=== PATIENT | female | born 1995 | race Caucasian/White ===

== ENCOUNTER 2021-03-02 09:40 | Emergency (ER) | payer MEDICAID, OTHER ==
[~2021-03-02] VITALS: Ht 152.4 cm; Wt 50.8 kg
[2021-03-02 23:33] VITALS: BP 140/94
[2021-03-03 00:38] LABS: CREATININE 0.7 mg/dL (0.5-1.5); POTASSIUM 3.9 mmol/L (3.5-5.1)
[2021-03-03] MEDS ORDERED: MORPHINE 4 MG SYG IV ONE (01:00)
[2021-03-03] MEDS ORDERED: ONDANSETRON 4MG INJ IVP ONE (01:00)
[2021-03-03 01:55] LABS: BASOPHILS % (AUTO) 0.5 % (0.0-5.0); EOSINOPHILS % (AUTO) 0.4 % (0.0-8.0); HEMATOCRIT 35.3 % (36-48); LYMPHOCYTES % (AUTO) 12.7 % (21.0-51.0); MEAN CORPUSCULAR HGB CONC 34.6 g/dL (32.0-36.0); MEAN CORPUSCULAR VOLUME 86.9 fL (79-99); MONOCYTES % (AUTO) 5.8 % (3.0-13.0); NEUTROPHILS % (AUTO) 80.4 % (40.0-77.0); PLATELET COUNT (AUTO) 234 K/uL (130-400); RED BLOOD CELL COUNT(AUTO) 4.06 MIL/uL (4.00-5.50); RED CELL DISTRIBUTION WIDTH 11.6 % (11.0-15.5); WHITE BLOOD COUNT (AUTO) 8.2 K/uL (4.8-10.8)
[2021-03-03] MEDS ORDERED: LACTATED RINGERS 1000ML 1,000 ML IV ONE (07:22)
== END 2021-03-03 08:00 | disposition short-term general hospital (02) ==
LOC: EDH 23:31
DX: T25.221A Burn of second degree of right foot, initial encounter (principal); T25.291A Burn of second degree of multiple sites of right ankle and foot, initial encounter; Z20.822 Contact with and (suspected) exposure to COVID-19; T31.0 Burns involving less than 10% of body surface; X10.2XXA Contact with fats and cooking oils, initial encounter; Y93.89 Activity, other specified; Y92.89 Other specified places as the place of occurrence of the external cause; Y99.8 Other external cause status; Z79.899 Other long term (current) drug therapy
CPT/HCPCS: 36415; 80048; 85025; 87635; 96374; 96375; 99285; C9803; J2270; J2405; J7120

== ENCOUNTER 2021-10-27 15:43 | Inpatient (IN) | payer OTHER ==
[~2021-10-27] VITALS: Ht 152.4 cm; Wt 45.4 kg
[2021-10-27 16:03] LABS: BASOPHILS % (AUTO) 0.1 % (0.0-5.0); EOSINOPHILS % (AUTO) 0.1 % (0.0-8.0); HEMATOCRIT 40.8 % (36-48); LYMPHOCYTES % (AUTO) 4.4 % (21.0-51.0); MEAN CORPUSCULAR HEMOGLOBIN 29.6 pg (27.0-33.0); MEAN CORPUSCULAR VOLUME 82.1 fL (79-99); MONOCYTES % (AUTO) 7.2 % (3.0-13.0); NEUTROPHILS % (AUTO) 87.7 % (40.0-77.0); PLATELET COUNT (AUTO) 302 K/uL (130-400); RED BLOOD CELL COUNT(AUTO) 4.97 MIL/uL (4.00-5.50); RED CELL DISTRIBUTION WIDTH 11.9 % (11.0-15.5); WHITE BLOOD COUNT (AUTO) 18.4 K/uL (4.8-10.8)
[2021-10-27 16:12] LABS: CREATININE 1.5 mg/dL (0.5-1.5); POTASSIUM 3.4 mmol/L (3.5-5.1)
[2021-10-27 16:16] LABS: ALBUMIN 5.4 g/dL (3.5-5.0); BILIRUBIN,TOTAL 0.7 mg/dL (0.2-1.0)
[2021-10-27] MEDS ORDERED: ONDANSETRON 4MG INJ IVP ONE ×2 (16:30→17:00)
[2021-10-27] MEDS ORDERED: 0.9%NACL 1000ML 1,000 ML IV ONE ×2 (16:30→17:30)
[2021-10-27] MEDS ORDERED: MORPHINE 4 MG SYG IVP ONE ×2 (17:00→20:00)
[2021-10-27 17:31] LABS: APPEARANCE,URINE SL CLOUDY (CLEAR); BILIRUBIN,URINE MODERATE (NEGATIVE); COLOR,URINE DARK YELLOW (YELLOW); GLUCOSE, URINE (UA) NEGATIVE (NEGATIVE); KETONES,URINE 40 mg/dL (NEGATIVE); LEUKOCYTE ESTERASE ,URINE NEGATIVE (NEGATIVE); NITRATE,URINE NEGATIVE (NEGATIVE); OCCULT BLOOD,URINE TRACE-INTACT (NEGATIVE); PH,URINE 5.5 (5.0-8.0); PROTEIN,URINE 100 mg/dL (NEGATIVE)
[2021-10-27 17:35] LABS: HCG,QUAL RESULT NEGATIVE (NEGATIVE)
[2021-10-27] MEDS ORDERED: ZOSYN 3.375GM +NS 50ML IV STA (17:37)
[2021-10-27 17:44] LABS: BACTERIA,URINE Few /HPF (None Seen); MUCUS,URINE Few LPF (None Seen); RBC,URINE 0-1 /HPF (0-1); WBC,URINE 0-1 /HPF (0-1)
[2021-10-27 17:45] LABS: SQUAMOUS EPITHELIAL CELL,UR 0-2 /HPF (0-2)
[2021-10-27 18:01] LABS: AMPHET/METH SCREEN,URINE NEGATIVE (NEGATIVE); BARBITURATE SCREEN, URINE NEGATIVE (NEGATIVE); BENZODIAZEPINES SCREEN,URINE NEGATIVE (NEGATIVE); CANNABINOID SCREEN,URINE POSITIVE (NEGATIVE); COCAINE SCREEN,URINE NEGATIVE (NEGATIVE); OPIATE SCREEN,URINE NEGATIVE (NEGATIVE); PHENCYCLIDINE SCREEN,URINE NEGATIVE (NEGATIVE)
[2021-10-27] MEDS ORDERED: IOHEXOL-350 75 ML VIAL IV ONE (18:04)
[2021-10-27] MEDS ORDERED: KETOROLAC 30MG VIAL (30MG/ML) ONE (19:20)
[2021-10-27] MEDS ORDERED: KETOROLAC 30MG VIAL (30MG/ML) IVP ONE (19:30)
[2021-10-27] MEDS ORDERED: MORPHINE 4 MG SYG ONE (19:58)
[2021-10-27] MEDS ORDERED: CEFTRIAXONE 1G VIAL IVP ONE (20:00)
[2021-10-27] MEDS ORDERED: METRONIDAZOLE 500MG/100ML BAG 100 ML IVPB ONE (20:00)
[2021-10-27] MEDS ORDERED: DOXYCYCLINE HYCLATE 100 MG TABLET PO SCH (20:00)
[2021-10-27] MEDS ORDERED: ACET-3194 PO (20:46)
[2021-10-27 23:00] VITALS: BP 121/61
[2021-10-27] MEDS: DEXTROSE 5 %-0.45 % NACL 1,000 ML IV SCH (23:00)
[2021-10-27 23:05] VITALS: BP 121/61
[2021-10-27] MEDS: PROMETHAZINE HCL 25 MG/ML 1ML AMPULE IM PRN (23:51)
[2021-10-27] MEDS: MEPERIDINE-PF 50 MG/ML SYG IM PRN (23:52)
[2021-10-27] MEDS: CEFAZOLIN SODIUM 1 GM VIAL IVP SCH (23:53)
[2021-10-28] MEDS: DOXYCYCLINE 100MG+NS 250ML IV SCH ×3 (00:40→22:34)
[2021-10-28 03:41] VITALS: BP 112/70
[2021-10-28 07:40] VITALS: BP 112/81
[2021-10-28] MEDS: CEFAZOLIN SODIUM 1 GM VIAL IVP SCH ×2 (08:58→17:13)
[2021-10-28] MEDS: MEPERIDINE-PF 50 MG/ML SYG IM PRN (08:59)
[2021-10-28] MEDS: PROMETHAZINE HCL 25 MG/ML 1ML AMPULE IM PRN ×3 (08:59→21:52)
[2021-10-28 11:06] VITALS: BP 133/77
[2021-10-28] MEDS ORDERED: MEPERIDINE-PF 25 MG/ML SYG IM SCH (11:30)
[2021-10-28] MEDS ORDERED: MEPERIDINE-PF 75 MG/ML SYG ONE (15:33)
[2021-10-28 16:06] VITALS: BP 138/82
[2021-10-28 16:43] LABS: HEMATOCRIT 35.5 % (36-48); MEAN CORPUSCULAR HEMOGLOBIN 29.3 pg (27.0-33.0); MEAN CORPUSCULAR HGB CONC 34.4 g/dL (32.0-36.0); MEAN CORPUSCULAR VOLUME 85.1 fL (79-99); RED BLOOD CELL COUNT(AUTO) 4.17 MIL/uL (4.00-5.50); WHITE BLOOD COUNT (AUTO) 11.2 K/uL (4.8-10.8)
[2021-10-28] MEDS: DEXTROSE 5 %-0.45 % NACL 1,000 ML IV SCH (17:13)
[2021-10-28 20:13] VITALS: BP 134/80
[2021-10-28] MEDS: MEPERIDINE-PF 75 MG/ML SYG IM PRN (21:52)
[2021-10-29] VITALS (24 sets, daily range): BP systolic 112–155; BP diastolic 65–99
[2021-10-29] MEDS: CEFAZOLIN SODIUM 1 GM VIAL IVP SCH ×3 (01:35→16:12)
[2021-10-29] MEDS: MEPERIDINE-PF 75 MG/ML SYG IM PRN (04:06)
[2021-10-29] MEDS: PROMETHAZINE HCL 25 MG/ML 1ML AMPULE IM PRN (04:06)
[2021-10-29 07:27] LABS: HEMATOCRIT 35.5 % (36-48); MEAN CORPUSCULAR HEMOGLOBIN 29.7 pg (27.0-33.0); MEAN CORPUSCULAR HGB CONC 35.5 g/dL (32.0-36.0); MEAN CORPUSCULAR VOLUME 83.7 fL (79-99); RED BLOOD CELL COUNT(AUTO) 4.24 MIL/uL (4.00-5.50); WHITE BLOOD COUNT (AUTO) 8.8 K/uL (4.8-10.8)
[2021-10-29] MEDS ORDERED: FENTANYL CITRATE PF 50 MCG/1 ML 2ML VIAL ONE ×3 (08:51→10:38)
[2021-10-29] MEDS ORDERED: PROPOFOL 10 MG/ML 20ML VIAL IV ONE (08:51)
[2021-10-29] MEDS ORDERED: MIDAZOLAM HCL 1 MG/ML 2ML VIAL ONE (08:53)
[2021-10-29] MEDS: DOXYCYCLINE 100MG+NS 250ML IV SCH (11:17)
[2021-10-29] MEDS ORDERED: MEPERIDINE-PF 25 MG/ML SYG ONE (11:28)
[2021-10-29] MEDS: DEXTROSE 5 %-0.45 % NACL 1,000 ML IV SCH (15:00)
[2021-10-29] MEDS ORDERED: ACET-2079 PO (16:49)
[2021-10-29] MEDS ORDERED: IBUP-2088 PO (16:51)
[2021-10-29] MEDS ORDERED: CEPH500B PO (16:52)
== END 2021-10-29 18:35 | disposition home or self-care (01) | DRG 743 ==
LOC: EDH 15:43 → EDHIP 15:44 → WSH 23:05
PROVIDERS: ADMIT Obstetrics & Gynecology; ATTEND Obstetrics & Gynecology
PROC: 0U904ZZ Drainage of Right Ovary, Percutaneous Endoscopic Approach (ICD-10-PCS; principal; 2021-10-29 10:06)
DX: N83.201 Unspecified ovarian cyst, right side (principal); Z87.891 Personal history of nicotine dependence
CPT/HCPCS: 36415; 74177; 76856; 80053; 80305; 81001; 81025; 83690; 85025; 85027; 86850; 86900; 86901; 87486; 87635; 87797; A4351; G0378; J0690; J0696; J1885; J2175; J2250; J2270; J2405; J2543; J2550; J2704; J3010; J3490; J7030; J7120; Q9967

== ENCOUNTER 2021-10-29 23:25 | Emergency (ER) | payer OTHER ==
[~2021-10-29] VITALS: Ht 152.4 cm; Wt 45.4 kg
[~2021-10-29 23:25] MED LIST: ACET-2079 PO; ACET-3194 PO; CEPH500B PO; IBUP-2088 PO
[2021-10-30] MEDS ORDERED: LORAZEPAM 2 MG/ML 1 ML VIAL IVP ONE
[2021-10-30 02:27] VITALS: BP 145/78
== END 2021-10-30 02:35 | disposition home or self-care (01) ==
LOC: EDH 23:25
DX: G89.18 Other acute postprocedural pain (principal); R10.30 Lower abdominal pain, unspecified; Z79.1 Long term (current) use of non-steroidal anti-inflammatories (NSAID)
CPT/HCPCS: 96374; 99283; J2060

== ENCOUNTER 2021-11-05 09:16 | Emergency (ER) | payer OTHER ==
[~2021-11-05] VITALS: Ht 152.4 cm; Wt 45.4 kg
[2021-11-05 09:45] LABS: BASOPHILS % (AUTO) 0.1 % (0.0-5.0); HEMATOCRIT 37.7 % (36-48); LYMPHOCYTES % (AUTO) 13.5 % (21.0-51.0); MEAN CORPUSCULAR HEMOGLOBIN 29.4 pg (27.0-33.0); MEAN CORPUSCULAR HGB CONC 34.7 g/dL (32.0-36.0); MEAN CORPUSCULAR VOLUME 84.7 fL (79-99); MONOCYTES % (AUTO) 11.5 % (3.0-13.0); PLATELET COUNT (AUTO) 271 K/uL (130-400); RED BLOOD CELL COUNT(AUTO) 4.45 MIL/uL (4.00-5.50); RED CELL DISTRIBUTION WIDTH 12.1 % (11.0-15.5)
[2021-11-05 09:48] LABS: APPEARANCE,URINE SL CLOUDY (CLEAR); BILIRUBIN,URINE NEGATIVE (NEGATIVE); COLOR,URINE YELLOW (YELLOW); GLUCOSE, URINE (UA) 100 mg/dL (NEGATIVE); KETONES,URINE NEGATIVE (NEGATIVE); LEUKOCYTE ESTERASE ,URINE TRACE (NEGATIVE); NITRATE,URINE POSITIVE (NEGATIVE); OCCULT BLOOD,URINE SMALL (NEGATIVE); PH,URINE 6.5 (5.0-8.0); PROTEIN,URINE NEGATIVE (NEGATIVE); UROBILINOGEN,URINE 0.2 mg/dL (0.2-1.0)
[2021-11-05 09:50] LABS: HCG,QUAL RESULT NEGATIVE (NEGATIVE)
[2021-11-05 09:56] LABS: CREATININE 0.7 mg/dL (0.5-1.5); POTASSIUM 3.6 mmol/L (3.5-5.1)
[2021-11-05 10:00] LABS: BILIRUBIN,TOTAL 0.5 mg/dL (0.2-1.0); TOTAL PROTEIN, SERUM 6.8 g/dL (6.0-8.3)
[2021-11-05 10:05] LABS: RBC,URINE None Seen /HPF (0-1)
[2021-11-05 10:06] LABS: BACTERIA,URINE Many /HPF (None Seen)
[2021-11-05 10:14] LABS: AMPHET/METH SCREEN,URINE NEGATIVE (NEGATIVE); BARBITURATE SCREEN, URINE NEGATIVE (NEGATIVE); BENZODIAZEPINES SCREEN,URINE NEGATIVE (NEGATIVE); CANNABINOID SCREEN,URINE POSITIVE (NEGATIVE); COCAINE SCREEN,URINE NEGATIVE (NEGATIVE); OPIATE SCREEN,URINE POSITIVE (NEGATIVE); PHENCYCLIDINE SCREEN,URINE NEGATIVE (NEGATIVE)
[2021-11-05] MEDS ORDERED: MAGNESIUM CITRATE 296 ML SOLUTION PO ONE (11:00)
[2021-11-05] MEDS ORDERED: IOHEXOL 350 MG/ML 100ML INFUS..BTL IV ONE (12:10)
[2021-11-05] MEDS ORDERED: MAGNESIUM CITRATE 296 ML SOLUTION ONE (13:06)
[2021-11-05 13:56] VITALS: BP 130/82
== END 2021-11-05 15:23 | disposition home or self-care (01) ==
LOC: EDH 09:16
DX: K59.00 Constipation, unspecified (principal); Z98.890 Other specified postprocedural states; Z79.899 Other long term (current) drug therapy
CPT/HCPCS: 36415; 74177; 80053; 80305; 81001; 81025; 85025; 87077; 87088; 87186; 99285; Q9967

== ENCOUNTER 2021-12-01 15:47 | Inpatient (IN) | payer OTHER ==
[~2021-12-01] VITALS: Ht 152.4 cm; Wt 45.4 kg
[2021-12-01] MEDS ORDERED: ONDANSETRON 4MG INJ ONE (15:52)
[2021-12-01] MEDS ORDERED: PANTOPRAZOLE 40 MG/VIAL ONE (15:52)
[2021-12-01] MEDS ORDERED: MORPHINE 4 MG SYG ONE (15:53)
[2021-12-01] MEDS ORDERED: FAMOTIDINE 20MG VIAL IV ONE (16:00)
[2021-12-01] MEDS ORDERED: MORPHINE 4 MG SYG IVP ONE (16:00)
[2021-12-01] MEDS ORDERED: 0.9% NACL 500ML IV.SOLN 500 ML IV ONE (16:00)
[2021-12-01] MEDS ORDERED: ONDANSETRON 4MG INJ IVP ONE (16:00)
[2021-12-01 16:31] LABS: APPEARANCE,URINE CLEAR (CLEAR); BILIRUBIN,URINE NEGATIVE (NEGATIVE); COLOR,URINE YELLOW (YELLOW); GLUCOSE, URINE (UA) NEGATIVE (NEGATIVE); KETONES,URINE >=80 mg/dL (NEGATIVE); LEUKOCYTE ESTERASE ,URINE NEGATIVE (NEGATIVE); NITRATE,URINE NEGATIVE (NEGATIVE); OCCULT BLOOD,URINE TRACE-LYSED (NEGATIVE); PROTEIN,URINE NEGATIVE (NEGATIVE); UROBILINOGEN,URINE 0.2 mg/dL (0.2-1.0)
[2021-12-01 16:39] LABS: HCG,QUALITATIVE URINE NEGATIVE (NEGATIVE)
[2021-12-01 16:43] LABS: BASOPHILS % (AUTO) 0.4 % (0.0-5.0); HEMATOCRIT 35.9 % (36-48); LYMPHOCYTES % (AUTO) 7.2 % (21.0-51.0); MEAN CORPUSCULAR HEMOGLOBIN 30.5 pg (27.0-33.0); MEAN CORPUSCULAR HGB CONC 34.5 g/dL (32.0-36.0); MEAN CORPUSCULAR VOLUME 88.4 fL (79-99); MONOCYTES % (AUTO) 4.2 % (3.0-13.0); NEUTROPHILS % (AUTO) 87.8 % (40.0-77.0); PLATELET COUNT (AUTO) 250 K/uL (130-400); RED BLOOD CELL COUNT(AUTO) 4.06 MIL/uL (4.00-5.50); RED CELL DISTRIBUTION WIDTH 12.4 % (11.0-15.5); WHITE BLOOD COUNT (AUTO) 7.5 K/uL (4.8-10.8)
[2021-12-01 16:43] LABS: BACTERIA,URINE Rare /HPF (None Seen); MUCUS,URINE Few LPF (None Seen); SQUAMOUS EPITHELIAL CELL,UR Few /HPF (0-2); WBC,URINE 0-1 /HPF (0-1)
[2021-12-01 16:46] LABS: AMPHET/METH SCREEN,URINE NEGATIVE (NEGATIVE); BARBITURATE SCREEN, URINE NEGATIVE (NEGATIVE); BENZODIAZEPINES SCREEN,URINE NEGATIVE (NEGATIVE); CANNABINOID SCREEN,URINE POSITIVE (NEGATIVE); COCAINE SCREEN,URINE NEGATIVE (NEGATIVE); PHENCYCLIDINE SCREEN,URINE NEGATIVE (NEGATIVE)
[2021-12-01] MEDS ORDERED: IOHEXOL 350 MG/ML 100ML INFUS..BTL IV ONE (16:50)
[2021-12-01 16:57] LABS: CARBON DIOXIDE 23 mmol/L (21-32); CHLORIDE 112 mmol/L (101-111); CREATININE 0.6 mg/dL (0.5-1.5); GLOMERULAR FILTR. RATE CALC 127 mL/min (>60); GLUCOSE,RANDOM 77 mg/dL (70-105); POTASSIUM 3.5 mmol/L (3.5-5.1); SODIUM SERUM 147 mmol/L (136-145); UREA NITROGEN, BLOOD 9 mg/dL (7-18)
[2021-12-01 17:01] LABS: ALANINE AMINOTRANSFERASE 19 U/L (12-78); ALBUMIN 4.4 g/dL (3.5-5.0); ASPARTATE AMINOTRANSFERASE 14 U/L (10-37); TOTAL PROTEIN, SERUM 6.9 g/dL (6.0-8.3)
[2021-12-01 17:03] LABS: LIPASE < 50 U/L (114-286)
[2021-12-01] MEDS ORDERED: KETOROLAC 15MG/ML VIAL (15MG/ML) IV ONE (18:30)
[2021-12-01] MEDS ORDERED: IBUP-14 PO (19:25)
[2021-12-01] MEDS ORDERED: TRAM50TA2 PO (19:25)
[2021-12-01] MEDS ORDERED: ONDA4TAB10 PO (19:25)
[2021-12-01] MEDS ORDERED: MORPHINE 4 MG SYG IVP PRN (21:30)
[2021-12-01 23:00] VITALS: BP 128/96
[2021-12-01] MEDS: IBUPROFEN 600 MG TABLET PO SCH (23:00)
[2021-12-01] MEDS ORDERED: MORPHINE 2 MG SYG IVP PRN (23:30)
[2021-12-01] MEDS: DEXTROSE 5%-LACTATED RINGERS 1,000 ML IV SCH (23:33)
[2021-12-01] MEDS: ONDANSETRON 4MG INJ IVP PRN (23:34)
[2021-12-02] MEDS: HYDROMORPHONE 1 MG INJ IVP PRN ×2 (02:54→23:48)
[2021-12-02 04:02] VITALS: BP 100/74
[2021-12-02] MEDS: MORPHINE 2 MG SYG IVP PRN ×3 (06:04→13:26)
[2021-12-02] MEDS: ONDANSETRON 4MG INJ IVP PRN (06:04)
[2021-12-02] MEDS: DEXTROSE 5%-LACTATED RINGERS 1,000 ML IV SCH ×3 (06:05→22:37)
[2021-12-02] MEDS: IBUPROFEN 600 MG TABLET PO SCH ×4 (06:05→23:23)
[2021-12-02 06:38] LABS: BASOPHILS % (AUTO) 0.1 % (0.0-5.0); HEMATOCRIT 34.5 % (36-48); LYMPHOCYTES % (AUTO) 10.6 % (21.0-51.0); MEAN CORPUSCULAR HEMOGLOBIN 29.8 pg (27.0-33.0); MEAN CORPUSCULAR HGB CONC 33.6 g/dL (32.0-36.0); MEAN CORPUSCULAR VOLUME 88.7 fL (79-99); MONOCYTES % (AUTO) 8.6 % (3.0-13.0); NEUTROPHILS % (AUTO) 80.2 % (40.0-77.0); PLATELET COUNT (AUTO) 275 K/uL (130-400); RED BLOOD CELL COUNT(AUTO) 3.89 MIL/uL (4.00-5.50); RED CELL DISTRIBUTION WIDTH 12.4 % (11.0-15.5); WHITE BLOOD COUNT (AUTO) 9.5 K/uL (4.8-10.8)
[2021-12-02 06:55] LABS: ALBUMIN 3.7 g/dL (3.5-5.0); CREATININE 0.8 mg/dL (0.5-1.5); TOTAL PROTEIN, SERUM 6.3 g/dL (6.0-8.3)
[2021-12-02 07:28] VITALS: BP 108/66
[2021-12-02 11:35] VITALS: BP 100/60
[2021-12-02] MEDS ORDERED: CEFTRIAXONE 1G VIAL IM SCH (13:00)
[2021-12-02] MEDS: DOXYCYCLINE 100MG+NS 250ML IV SCH (13:28)
[2021-12-02 15:45] VITALS: BP 101/63
[2021-12-02 19:30] VITALS: BP 107/67
[2021-12-02 23:12] VITALS: BP 110/81
[2021-12-03] MEDS: DOXYCYCLINE 100MG+NS 250ML IV SCH (01:30)
[2021-12-03 03:22] VITALS: BP 120/88
[2021-12-03] MEDS: IBUPROFEN 600 MG TABLET PO SCH ×2 (05:00→08:18)
[2021-12-03 07:35] VITALS: BP 115/69
[2021-12-03] MEDS: DEXTROSE 5%-LACTATED RINGERS 1,000 ML IV SCH ×2 (07:35→07:39)
[2021-12-03] MEDS ORDERED: CEPH250C2 PO (09:10)
[2021-12-03] MEDS ORDERED: IBUP-2697 PO (09:12)
[2021-12-04 14:11] LABS: OPIATES SCREEN URINE Positive ng/mL (Cutoff=300)
== END 2021-12-03 09:40 | disposition home or self-care (01) | DRG 761 ==
LOC: EDH 15:47 → EDHIP 15:48 → WSH 22:35
PROVIDERS: ADMIT Obstetrics & Gynecology; ATTEND Obstetrics & Gynecology
DX: N83.291 Other ovarian cyst, right side (principal); Z90.710 Acquired absence of both cervix and uterus; Z98.891 History of uterine scar from previous surgery
CPT/HCPCS: 36415; 74177; 76856; 80053; 80305; 81001; 81025; 83690; 85025; 86850; 86900; 86901; 87486; 87797; C9113; G0378; J0696; J1170; J1885; J2270; J2405; J3490; Q9967

== ENCOUNTER 2021-12-31 15:06 | Emergency (ER) | payer OTHER ==
[~2021-12-31] VITALS: Ht 160 cm; Wt 49.9 kg
[~2021-12-31 15:06] MED LIST changes: -ACET-2079 PO; -ACET-3194 PO; +CEPH250C2 PO; -CEPH500B PO; -IBUP-2088 PO; +IBUP-2697 PO
[2021-12-31] MEDS ORDERED: 0.9% NACL 500ML IV.SOLN 500 ML IV ONE (15:30)
[2021-12-31] MEDS ORDERED: KETOROLAC 15MG/ML VIAL (15MG/ML) IV ONE (15:30)
[2021-12-31] MEDS ORDERED: DiphenhydrAMINE HCL 50 MG/ML VIAL IV ONE (15:30)
[2021-12-31] MEDS ORDERED: PROCHLORPERAZINE 10MG/2ML INJ IV ONE (15:30)
[2021-12-31 16:00] LABS: BASOPHILS % (AUTO) 0.2 % (0.0-5.0); EOSINOPHILS % (AUTO) 0.1 % (0.0-8.0); HEMATOCRIT 39.2 % (36-48); MEAN CORPUSCULAR HEMOGLOBIN 29.9 pg (27.0-33.0); MEAN CORPUSCULAR HGB CONC 33.9 g/dL (32.0-36.0); MEAN CORPUSCULAR VOLUME 88.1 fL (79-99); MONOCYTES % (AUTO) 5.4 % (3.0-13.0); NEUTROPHILS % (AUTO) 82.9 % (40.0-77.0); PLATELET COUNT (AUTO) 257 K/uL (130-400); RED BLOOD CELL COUNT(AUTO) 4.45 MIL/uL (4.00-5.50); RED CELL DISTRIBUTION WIDTH 11.6 % (11.0-15.5); WHITE BLOOD COUNT (AUTO) 9.3 K/uL (4.8-10.8)
[2021-12-31 16:22] LABS: CREATININE 0.6 mg/dL (0.5-1.5); POTASSIUM 4.3 mmol/L (3.5-5.1)
[2021-12-31 16:27] LABS: ALBUMIN 4.4 g/dL (3.5-5.0); TOTAL PROTEIN, SERUM 7.4 g/dL (6.0-8.3)
[2021-12-31] MEDS ORDERED: FIORIT PO (17:12)
[2021-12-31 17:56] VITALS: BP 127/79
== END 2021-12-31 17:56 | disposition home or self-care (01) ==
LOC: EDH 15:06
DX: G43.909 Migraine, unspecified, not intractable, without status migrainosus (principal); R11.2 Nausea with vomiting, unspecified; Z79.1 Long term (current) use of non-steroidal anti-inflammatories (NSAID)
CPT/HCPCS: 99284; 96374; 70450; 96375; 96361; 80053; 84703; 85025; 36415; J7040; J1200; J0780; J1885

== ENCOUNTER 2023-04-20 20:01 | Emergency (ER) | payer MEDICAID, OTHER ==
[~2023-04-20] VITALS: Ht 152.4 cm; Wt 54.4 kg
[~2023-04-20 20:01] MED LIST changes: +FIORIT PO
[2023-04-20] MEDS ORDERED: TETANUS/DIPHTHERIA TOXOID [ADULT] 0.5 ML VIAL IM ONE (20:30)
[2023-04-20] MEDS ORDERED: CEPH500B PO (20:44)
[2023-04-20] MEDS ORDERED: IBUP-1493 PO (20:44)
== END 2023-04-20 22:25 | disposition home or self-care (01) ==
LOC: EDH 20:01
DX: S01.01XA Laceration without foreign body of scalp, initial encounter (principal); F17.200 Nicotine dependence, unspecified, uncomplicated; Z79.1 Long term (current) use of non-steroidal anti-inflammatories (NSAID); W10.8XXA Fall (on) (from) other stairs and steps, initial encounter; Y93.89 Activity, other specified; Y92.89 Other specified places as the place of occurrence of the external cause; Y99.8 Other external cause status
CPT/HCPCS: 12013; 70450; 81025; 90471; 90714

== ENCOUNTER 2023-06-21 13:13 | Emergency (ER) | payer BC, MEDICAID ==
[~2023-06-21] VITALS: Ht 154.9 cm; Wt 50.8 kg
[~2023-06-21 13:13] MED LIST changes: +CEPH500B PO; +IBUP-1493 PO
[2023-06-21 13:44] LABS: APPEARANCE,URINE CLEAR (CLEAR); BILIRUBIN,URINE NEGATIVE (NEGATIVE); COLOR,URINE LIGHT-YELLOW (YELLOW); GLUCOSE, URINE (UA) 300 mg/dL (NEGATIVE); KETONES,URINE 150 mg/dL (NEGATIVE); LEUKOCYTE ESTERASE ,URINE NEGATIVE Leu/uL (NEGATIVE); NITRATE,URINE NEGATIVE (NEGATIVE); OCCULT BLOOD,URINE NEGATIVE (NEGATIVE); PH,URINE 6.5 (5.0-8.0); PROTEIN,URINE 20 mg/dL (NEGATIVE); UROBILINOGEN,URINE 0.2 mg/dL (0.2-1.0)
[2023-06-21 13:53] LABS: ADD UA MICROSCOPIC YES
[2023-06-21] MEDS: HYDROMORPHONE 0.5 MG SYG (0.5MG/0.5ML) IVP ONE (13:53)
[2023-06-21] MEDS: ONDANSETRON 4MG INJ IVP ONE (13:53)
[2023-06-21 13:55] LABS: BACTERIA,URINE FEW /HPF (None Seen); MUCUS,URINE RARE LPF (None Seen); SQUAMOUS EPITHELIAL CELL,UR MOD /HPF (0-2)
[2023-06-21 14:06] LABS: AMPHET/METH SCREEN,URINE NEGATIVE (NEGATIVE); BARBITURATE SCREEN, URINE NEGATIVE (NEGATIVE); BENZODIAZEPINES SCREEN,URINE NEGATIVE (NEGATIVE); CANNABINOID SCREEN,URINE POSITIVE (NEGATIVE); COCAINE SCREEN,URINE NEGATIVE (NEGATIVE); OPIATE SCREEN,URINE NEGATIVE (NEGATIVE); PHENCYCLIDINE SCREEN,URINE NEGATIVE (NEGATIVE)
[2023-06-21 14:14] LABS: BASOPHILS # (AUTO) 0.01 K/uL (0.00-0.20); BASOPHILS % (AUTO) 0.1 % (0.0-5.0); HEMATOCRIT 37.2 % (36-48); IMMATURE GRANULOCYTE ABSOLUTE 0.02 K/uL (0-1); LYMPHOCYTES # (AUTO) 0.2 K/uL (1.0-4.8); LYMPHOCYTES % (AUTO) 2.6 % (21.0-51.0); MEAN CORPUSCULAR HEMOGLOBIN 29.6 pg (27.0-33.0); MEAN CORPUSCULAR HGB CONC 33.9 g/dL (32.0-36.0); MEAN CORPUSCULAR VOLUME 87.5 fL (79-99); MONOCYTES # (AUTO) 0.2 K/uL (0.1-1.0); NEUTROPHILS # (AUTO) 7.6 K/uL (1.8-7.7); NEUTROPHILS % (AUTO) 94.1 % (40.0-77.0); PLATELET COUNT (AUTO) 180 K/uL (130-400); RED BLOOD CELL COUNT(AUTO) 4.25 MIL/uL (4.00-5.50); RED CELL DISTRIBUTION WIDTH 12.3 % (11.0-15.5)
[2023-06-21 14:28] LABS: CREATININE 0.7 mg/dL (0.5-1.5); POTASSIUM 3.7 mmol/L (3.5-5.1)
[2023-06-21 14:47] LABS: ALBUMIN 3.8 g/dL (3.5-5.0); BILIRUBIN,TOTAL 0.3 mg/dL (0.2-1.0); TOTAL PROTEIN, SERUM 6.6 g/dL (6.0-8.3)
[2023-06-21] MEDS: 0.9%NACL 1000ML 1,000 ML IV ONE (15:43)
[2023-06-21] MEDS: FAMOTIDINE 20MG VIAL IV ONE (15:44)
[2023-06-21] MEDS: HALOPERIDOL INJ 5 MG/ML VIAL IV ONE (15:44)
[2023-06-21] MEDS: DiphenhydrAMINE HCL 50 MG/ML VIAL IV ONE (15:44)
[2023-06-21 16:17] VITALS: BP 115/73; PULSE 69; RESP 17; O2SAT 98
== END 2023-06-21 17:17 | disposition home or self-care (01) ==
LOC: EDH 13:13
DX: R11.10 Vomiting, unspecified (principal); F41.9 Anxiety disorder, unspecified; R10.2 Pelvic and perineal pain; F17.200 Nicotine dependence, unspecified, uncomplicated; Z79.1 Long term (current) use of non-steroidal anti-inflammatories (NSAID)
CPT/HCPCS: 99284; 96374; 96375; 96361; 82150 ×2; 80053; 80305; 84702; 83690; 85025; 87077; 87088; 87186; 36415; 93005; 81001; J1200; J3490; J7030; J1630; J2405; J1170

== ENCOUNTER 2023-06-23 21:59 | Emergency (ER) | payer MEDICAID ==
[~2023-06-23] VITALS: Ht 152.4 cm; Wt 50.8 kg
[2023-06-23] MEDS: HALOPERIDOL INJ 5 MG/ML VIAL IM SCH (22:47)
[2023-06-23 23:07] LABS: BASOPHILS # (AUTO) 0.02 K/uL (0.00-0.20); BASOPHILS % (AUTO) 0.3 % (0.0-5.0); EOSINOPHILS # (AUTO) 0.01 K/uL (0.00-0.70); EOSINOPHILS % (AUTO) 0.1 % (0.0-8.0); HEMATOCRIT 39.7 % (36-48); IMMATURE GRANULOCYTE ABSOLUTE 0.03 K/uL (0-1); LYMPHOCYTES # (AUTO) 0.9 K/uL (1.0-4.8); LYMPHOCYTES % (AUTO) 12.2 % (21.0-51.0); MEAN CORPUSCULAR VOLUME 85.2 fL (79-99); MONOCYTES # (AUTO) 0.4 K/uL (0.1-1.0); NEUTROPHILS # (AUTO) 6.2 K/uL (1.8-7.7); PLATELET COUNT (AUTO) 253 K/uL (130-400); RED BLOOD CELL COUNT(AUTO) 4.66 MIL/uL (4.00-5.50); RED CELL DISTRIBUTION WIDTH 12.1 % (11.0-15.5); WHITE BLOOD COUNT (AUTO) 7.6 K/uL (4.8-10.8)
[2023-06-23 23:21] LABS: ALBUMIN 4.6 g/dL (3.5-5.0); BILIRUBIN,TOTAL 0.4 mg/dL (0.2-1.0); CREATININE 0.8 mg/dL (0.5-1.5)
[2023-06-23 23:23] LABS: HCG,QUALITATIVE URINE NEGATIVE (NEGATIVE)
[2023-06-23 23:25] LABS: APPEARANCE,URINE CLEAR (CLEAR); BILIRUBIN,URINE NEGATIVE (NEGATIVE); COLOR,URINE YELLOW (YELLOW); GLUCOSE, URINE (UA) NEGATIVE (NEGATIVE); KETONES,URINE 60 mg/dL (NEGATIVE); LEUKOCYTE ESTERASE ,URINE 25 Leu/uL (NEGATIVE); NITRATE,URINE NEGATIVE (NEGATIVE); OCCULT BLOOD,URINE NEGATIVE (NEGATIVE); PH,URINE 8.5 (5.0-8.0); PROTEIN,URINE 50 mg/dL (NEGATIVE); UROBILINOGEN,URINE 0.2 mg/dL (0.2-1.0)
[2023-06-23 23:26] LABS: ADD UA MICROSCOPIC YES
[2023-06-23 23:28] LABS: MUCUS,URINE RARE LPF (None Seen); SQUAMOUS EPITHELIAL CELL,UR MOD /HPF (0-2)
[2023-06-23] MEDS ORDERED: IOHEXOL 350 MG/ML 100ML INFUS..BTL IV ONE (23:33)
[2023-06-24] MEDS ORDERED: DICY20TA2 PO (00:35)
[2023-06-24] MEDS ORDERED: OMEP40CA21 PO (00:35)
[2023-06-24] MEDS: POTASSIUM BICARB/CIT AC 25 MEQ TABLET.EFF PO ONE (00:45)
[2023-06-24 00:46] VITALS: BP 132/82; PULSE 67; RESP 20; O2SAT 98
== END 2023-06-24 00:58 | disposition home or self-care (01) ==
LOC: EDH 21:59
DX: R11.15 Cyclical vomiting syndrome unrelated to migraine (principal); F17.200 Nicotine dependence, unspecified, uncomplicated; Z79.1 Long term (current) use of non-steroidal anti-inflammatories (NSAID)
CPT/HCPCS: 99285; 74177; 82550; 80053; 83690; 85025; 81001; 81025; 36415; J1630; Q9967

== ENCOUNTER → 2023-06-30 | Emergency (ER) | payer BC, MEDICAID ==
[~2023-06-30] VITALS: Ht 152.4 cm; Wt 47.6 kg
[~2023-06-30] MED LIST changes: -CEPH500B PO; +DICY20TA2 PO; -IBUP-1493 PO; +OMEP40CA21 PO
[2023-06-30 19:03] VITALS: BP 159/123; PULSE 90; RESP 17
[2023-06-30 19:11] LABS: BASOPHILS # (AUTO) 0.05 K/uL (0.00-0.20); BASOPHILS % (AUTO) 0.5 % (0.0-5.0); EOSINOPHILS # (AUTO) 0.01 K/uL (0.00-0.70); EOSINOPHILS % (AUTO) 0.1 % (0.0-8.0); HEMATOCRIT 42.9 % (36-48); IMMATURE GRANULOCYTE ABSOLUTE 0.06 K/uL (0-1); LYMPHOCYTES # (AUTO) 1.4 K/uL (1.0-4.8); LYMPHOCYTES % (AUTO) 13.1 % (21.0-51.0); MEAN CORPUSCULAR HEMOGLOBIN 29.4 pg (27.0-33.0); MEAN CORPUSCULAR HGB CONC 34.5 g/dL (32.0-36.0); MEAN CORPUSCULAR VOLUME 85.3 fL (79-99); MONOCYTES # (AUTO) 0.6 K/uL (0.1-1.0); MONOCYTES % (AUTO) 5.1 % (3.0-13.0); NEUTROPHILS # (AUTO) 8.9 K/uL (1.8-7.7); NEUTROPHILS % (AUTO) 80.7 % (40.0-77.0); PLATELET COUNT (AUTO) 371 K/uL (130-400); RED BLOOD CELL COUNT(AUTO) 5.03 MIL/uL (4.00-5.50); RED CELL DISTRIBUTION WIDTH 12.6 % (11.0-15.5)
[2023-06-30 19:17] LABS: APPEARANCE,URINE CLOUDY (CLEAR); BILIRUBIN,URINE NEGATIVE (NEGATIVE); COLOR,URINE YELLOW (YELLOW); GLUCOSE, URINE (UA) NEGATIVE (NEGATIVE); KETONES,URINE 150 mg/dL (NEGATIVE); LEUKOCYTE ESTERASE ,URINE 250 Leu/uL (NEGATIVE); NITRATE,URINE NEGATIVE (NEGATIVE); PROTEIN,URINE 200 mg/dL (NEGATIVE); UROBILINOGEN,URINE 0.2 mg/dL (0.2-1.0)
[2023-06-30 19:18] LABS: HCG,QUALITATIVE URINE NEGATIVE (NEGATIVE)
[2023-06-30 19:18] LABS: CREATININE 0.7 mg/dL (0.5-1.5); POTASSIUM 3.7 mmol/L (3.5-5.1)
[2023-06-30 19:19] LABS: ADD UA MICROSCOPIC YES
[2023-06-30 19:21] LABS: BACTERIA,URINE MOD /HPF (None Seen); MUCUS,URINE MANY LPF (None Seen); SQUAMOUS EPITHELIAL CELL,UR MANY /HPF (0-2); WBC,URINE 26-50 /HPF (0-1)
[2023-06-30 19:23] LABS: ALBUMIN 4.9 g/dL (3.5-5.0); BILIRUBIN,TOTAL 1.1 mg/dL (0.2-1.0)
[2023-06-30] MEDS: MORPHINE 4 MG SYG IVP ONE (19:25)
[2023-06-30] MEDS: 0.9%NACL 1000ML 1,000 ML IV ONE (19:25)
[2023-06-30] MEDS: ONDANSETRON 4MG INJ IVP ONE (19:26)
[2023-06-30] MEDS: FAMOTIDINE 20MG VIAL IV ONE (19:26)
[2023-06-30] MEDS: HALOPERIDOL INJ 5 MG/ML VIAL IM SCH (19:35)
[2023-06-30 19:47] LABS: AMPHET/METH SCREEN,URINE NEGATIVE (NEGATIVE); BARBITURATE SCREEN, URINE NEGATIVE (NEGATIVE); BENZODIAZEPINES SCREEN,URINE NEGATIVE (NEGATIVE); CANNABINOID SCREEN,URINE POSITIVE (NEGATIVE); COCAINE SCREEN,URINE NEGATIVE (NEGATIVE); OPIATE SCREEN,URINE NEGATIVE (NEGATIVE); PHENCYCLIDINE SCREEN,URINE NEGATIVE (NEGATIVE)
== END ==
LOC: EDH 18:31
DX: R11.15 Cyclical vomiting syndrome unrelated to migraine (principal); K21.9 Gastro-esophageal reflux disease without esophagitis; F17.200 Nicotine dependence, unspecified, uncomplicated; Z79.1 Long term (current) use of non-steroidal anti-inflammatories (NSAID); Z79.899 Other long term (current) drug therapy
CPT/HCPCS: 99284; 96374; 96375; 80053; 80305; 83690; 85025; 87088; 81025; 36415; 96372; 81001; J3490; J7030; J1630; J2405; J2270